=== PATIENT | male | born 1960 ===

== ENCOUNTER 2017-08-25 02:44 | Emergency (ER) | payer SELFPAY ==
[2017-08-25 03:35] LABS: CHLORIDE,CL 104 mmol/L (101-111); SODIUM,NA 141 mmol/L (135-145)
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
== END 2017-08-25 04:56 ==
LOC: DL.ED 02:44
DX: S01.01XA Laceration without foreign body of scalp, initial encounter (principal); S46.911A Strain of unspecified muscle, fascia and tendon at shoulder and upper arm level, right arm, initial encounter; S46.912A Strain of unspecified muscle, fascia and tendon at shoulder and upper arm level, left arm, initial encounter; F10.120 Alcohol abuse with intoxication, uncomplicated; Y90.8 Blood alcohol level of 240 mg/100 ml or more; V89.2XXA Person injured in unspecified motor-vehicle accident, traffic, initial encounter
CPT/HCPCS: 12002; 36415; 80053; 85025; 99285; G0480; 99283

== ENCOUNTER 2017-09-11 14:07 | Emergency (ER) | payer SELFPAY | END 2017-09-11 14:10 | disposition left against medical advice (07) | LOC: DL.ED 14:07 | DX: Z53.21 Procedure and treatment not carried out due to patient leaving prior to being seen by health care provider (principal) ==

== ENCOUNTER 2022-03-15 16:51 | Emergency (ER) | payer SELFPAY | END 2022-03-15 17:19 | disposition home or self-care (01) | LOC: DL.ED 16:51 | DX: S60.352A Superficial foreign body of left thumb, initial encounter (principal); F17.210 Nicotine dependence, cigarettes, uncomplicated; W45.8XXA Other foreign body or object entering through skin, initial encounter | CPT/HCPCS: 99282; 99283 ==

== ENCOUNTER 2022-05-26 19:31 | Emergency (ER) | payer SELFPAY ==
[2022-05-26] MEDS ORDERED: Fluorescein 1 MG Ophth Strip EYERT ONE (19:43)
[2022-05-26] MEDS ORDERED: Tetracaine HCl/PF 0.5% 4 ML Bottle EYERT ONE (19:44)
[2022-05-26] MEDS ORDERED: Bacitracin/Polymyxin B Ophth Oint 3.5 GM Tube ONE (20:05)
== END 2022-05-26 20:13 | disposition home or self-care (01) ==
LOC: DL.ED 19:31
DX: H57.11 Ocular pain, right eye (principal)
CPT/HCPCS: 99283; A9270